=== PATIENT | female | born 1980 | race American Indian/Alaskan Native ===

== ENCOUNTER 2016-12-31 11:49 | Emergency (ER) | payer OTHER ==
[2016-12-31 11:49] VITALS: BMI 43.8
[2016-12-31 12:03] VITALS: TEMP 98.4
[2016-12-31] MEDS ORDERED: TraMADol/Apap 37.5/325 mg Tab PO STA (12:40)
--- NOTE | 2016-12-31 12:57 | ED PDOC ---
Arrival/HPI - General Chief Complaint: Lower Extremity Problem/Injury Time Seen by Provider: 12/31/16 12:17 Historian: Patient - History of Present Illness Narrative History of Present Illness (Text): 12/31/16 12:30 A 36 year old female, whose past medical history includes hypertension, cholelithiasis, and right knee surgery (01/2016), presents to the emergency department complaining of right knee pain and swelling for the past two weeks. Patient reports pain radiated down the right leg to the feet with R calf pain. She states pain started suddenly while walking and denies any injuries, hip pain , fever, or any other complaints at this time. PMD: Dr. Pearson Time/Duration: > week (2 weeks) Symptom Onset: Sudden Symptom Course: Unchanged Quality: Other Activities at Onset: Light Modifying Factors (Text): none Context: Walking Associated Symptoms (Text): pain radiates down the leg to the feet Past Medical History - Provider Review Nursing Documentation Reviewed: Yes - Infectious Disease Hx of Infectious Diseases: None - Tetanus Immunization Tetanus Immunization: Up to Date - Reproductive Menopause: No - Past Medical History Past Medical History: No Previous - Cardiac Hx Hypotension: Yes Hx Pacemaker: No - Pulmonary Hx Respiratory Disorders: No - Neurological Hx Paralysis: No - HEENT Hx HEENT Disorder: No - Renal Hx Renal Disorder: No - Endocrine/Metabolic Hx Endocrine Disorders: No - Hematological/Oncological Hx Blood Transfusions: Yes Hx Blood Transfusion Reaction: No - Integumentary Hx Dermatological Disorder: No - Musculoskeletal/Rheumatological Hx Musculoskeletal Disorders: Yes - Gastrointestinal Hx Gastrointestinal Disorders: Yes - Genitourinary/Gynecological Hx Genitourinary Disorders: No - Psychiatric Hx Emotional Abuse: No Hx Physical Abuse: No Hx Substance Use: No - Past Surgical History Past Surgical History: No Previous - Surgical History Hx Arthroscopy: Yes (R knee) Other/Comment: EXC GANGLION CYST RIGHT FOOT 09/2014. July 2015 - Ovarian cyst removal - Anesthesia Hx Anesthesia Reactions: No Hx Malignant Hyperthermia: No - Suicidal Assessment Feels Threatened In Home Enviroment: No Family/Social History - Physician Review Nursing Documentation Reviewed: Yes Family/Social History: Unknown Family HX Smoking Status: Never Smoked Hx Alcohol Use: No Hx Substance Use: No Hx Substance Use Treatment: No Allergies/Home Meds Allergies/Adverse Reactions: Allergies No Known Allergies Allergy (Verified 07/21/16 11:21) Home Medications: Home Meds Medication Instructions Recorded Confirmed Hydrochlorothiazide [HCTZ] 25 mg PO DAILY 09/27/14 12/31/16 cloNIDine [Catapres] 0.1 mg PO BID 10/05/15 12/31/16 Valsartan [Diovan] 80 mg PO DAILY 07/21/16 12/31/16 amLODIPine [Norvasc] 5 mg PO DAILY 07/21/16 12/31/16 Celecoxib [CeleBREX] 100 mg PO DAILY 10/10/16 12/31/16 Potassium Chloride [Klor-Con M20] 20 meq PO DAILY 10/10/16 12/31/16 Zonisamide [Zonegran] 1 cap PO DAILY 10/18/16 12/31/16 Review of Systems - Physician Review All systems were reviewed & negative as marked: Yes - Review of Systems Constitutional: absent: Other (injuries) Musculoskeletal: Other (right knee pain and swelling radiating down leg; no hip pain) Physical Exam Vital Signs Reviewed: Yes Vital Signs Temp Pulse Resp BP Pulse Ox 12/31/16 13:01 98.4 F 75 18 154/91 H 99 12/31/16 11:58 98.4 F 78 16 154/94 H 100 Temperature: Afebrile Blood Pressure: Hypertensive Pulse: Regular Respiratory Rate: Normal Appearance: Positive for: Well-Appearing, Non-Toxic, Comfortable Pain Distress: None Mental Status: Positive for: Alert and Oriented X 3 - Systems Exam Head: Present: Atraumatic, Normocephalic Conjunctiva: Present: Normal Mouth: Present: Moist Mucous Membranes Neck: Present: Normal Range of Motion Upper Extremity: Present: Normal Inspection Lower Extremity: Present: NORMAL PULSES, Normal ROM, Tenderness (mild tenderness with palpation of the right knee), Swelling (right knee mild swelling ), Neurovascularly Intact. No: Edema, Erythema Neurological: Present: GCS=15, CN II-XII Intact, Speech Normal Skin: Present: Warm, Dry, Normal Color. No: Rashes Psychiatric: Present: Alert, Oriented x 3, Normal Insight, Normal Concentration Medical Decision Making ED Course and Treatment: 12/31/16 12:30 Impression: A 36 year old female with right knee swelling and pain. Differential Diagnosis include but are not limited to: sprain vs fracture vs. dislocation vs. DVT Plan: -- Right Knee X-ray -- Right Lower Extremity Duplex Ultrasound -- POC Urine -- Toradol and Ultracet -- Reassess and disposition Prior Visits: Notes and results from previous visits were reviewed. The patient last presented to the emergency department on 09/20/16 for evaluation of abdominal pain and hematochezia. Progress Notes: 12/31/16 13:27 Ultrasound called to notify the emergency department that patient duplex of the right lower extremity is negative for DVT. 12/31/16 14:04 XR as read by me with no acute findings. Sono with no DVT. Exam with FROM with no erythema or warmth or concern for septic joint. Patient feels better and has an orthopedic with whom she will follow up. Ok for d.c on nsaid and ultracet. - RAD Interpretation Radiology Orders: 12/31/16 12:38 KNEE W PATELLA RIGHT 3 VIEW [RAD] Stat 12/31/16 12:39 DUPLEX LOWER EXTRM VEIN RIGHT [US] Stat - Medication Orders Current Medication Orders: Discontinued Medications Ketorolac Tromethamine (Toradol) 60 mg IM STAT STA Stop: 12/31/16 12:41 Last Admin: 12/31/16 13:08 Dose: 60 mg Tramadol/Acetaminophen (Ultracet 37.5/325 Mg) 2 tab PO STAT STA Stop: 12/31/16 12:41 Last Admin: 12/31/16 13:08 Dose: 2 tab - Scribe Statement The provider has reviewed the documentation as recorded by the Stefan Edmonds Provider Scribe Attestation: All medical record entries made by the Scribe were at my direction and personally dictated by me. I have reviewed the chart and agree that the record accurately reflects my personal performance of the history, physical exam, medical decision making, and the department course for this patient. I have also personally directed, reviewed, and agree with the discharge instructions and disposition. Disposition/Present on Arrival - Present on Arrival Any Indicators Present on Arrival: No History of DVT/PE: No History of Uncontrolled Diabetes: No Urinary Catheter: No History of Decub. Ulcer: No History Surgical Site Infection Following: None - Disposition Have Diagnosis and Disposition been Completed?: Yes Diagnosis: Right knee pain Disposition: HOME/ ROUTINE Disposition Time: 14:10 Patient Plan: Discharge Condition: GOOD Discharge Instructions (ExitCare): Swollen Knee Joint (ED), Knee Pain (ED) Additional Instructions: Take the medications as prescribed. Follow up with orthopedics. Knee immobilizer and cane with ambulation. Return to the emergency department if any new concerning symptoms. Prescriptions: Naproxen [Naprosyn] 500 mg PO BID PRN #20 tab PRN Reason: Pain traMADol/Acetaminophen [Ultracet 325 MG-37.5 MG] 1 tab PO Q8H PRN #20 tab PRN Reason: Pain, Severe (8-10) Referrals: Siddhartha Pearson, [Primary Care Provider] - Follow up with primary
[2016-12-31 13:15] VITALS: BP 154/91; PULSE 75; RESP 18; O2SAT 99
--- NOTE | 2016-12-31 14:31 | RAD ---
PROCEDURE: Right Knee Radiographs. HISTORY: R knee pain and swelling COMPARISON: 10/05/2012 FINDINGS: BONES: Normal. No fracture. JOINTS: There is a small lucency adjacent to the articular surface of the lateral femoral condyle. This could represent an osteochondral defect. This was not present on the previous exam JOINT EFFUSION: None. OTHER FINDINGS: None. IMPRESSION: Probable osteochondral defect articular surface of the lateral femoral condyle.
--- NOTE | 2016-12-31 14:57 | US ---
PROCEDURE: Right lower extremity venous US HISTORY: Leg pain and swelling. Evaluate for DVT. PHYSICIAN(S): Kaleb Montgomery M.D. TECHNIQUE: Duplex sonography and color-flow Doppler with graded compression were used to evaluate the deep venous system of the right lower extremity. FINDINGS: The visualized deep venous system of the right lower extremity is sonographically normal and compressible. Normal waveforms and augmentation are seen. There is no sonographic evidence for deep venous thrombosis in the visualized segments of the right lower extremity. IMPRESSION: 1. No sonographic evidence for deep venous thrombosis in the visualized segments of the right lower extremity.
== END 2016-12-31 15:25 | disposition home or self-care (01) ==
LOC: ED 11:49
DX: M25.561 Pain in right knee (principal); I10 Essential (primary) hypertension; Z98.890 Other specified postprocedural states
CPT/HCPCS: 73562; 93971; 96372; 99283; J1885

== ENCOUNTER 2016-12-31 17:11 | Emergency (ER) | payer OTHER ==
[2016-12-31 17:21] VITALS: BMI 31.5
[2016-12-31 17:24] VITALS: BP 135/85; PULSE 82; RESP 16; TEMP 98; O2SAT 99
--- NOTE | 2016-12-31 19:57 | ED PDOC ---
Arrival/HPI - General Chief Complaint: Medical Clearance Time Seen by Provider: 12/31/16 17:12 Historian: Patient - History of Present Illness Narrative History of Present Illness (Text): 12/31/16 17:15 A 36 year old female who was seen previously today with right knee pain. Please review original charts from earlier. The patient was called back to come to the emergency department because X-ray was read by radiologist. It showed osteochondral defect and MRI was recommended. Patient states there are no change in symptoms from her visit earlier today. Orthopedist: Dr. Dan Past Medical History - Provider Review Nursing Documentation Reviewed: Yes - Infectious Disease Hx of Infectious Diseases: None - Tetanus Immunization Tetanus Immunization: Up to Date - Past Medical History Past Medical History: No Previous - Cardiac Hx Hypotension: Yes Hx Pacemaker: No - Pulmonary Hx Respiratory Disorders: No - Neurological Hx Paralysis: No - HEENT Hx HEENT Disorder: No - Renal Hx Renal Disorder: No - Endocrine/Metabolic Hx Endocrine Disorders: No - Hematological/Oncological Hx Blood Transfusions: Yes Hx Blood Transfusion Reaction: No - Integumentary Hx Dermatological Disorder: No - Musculoskeletal/Rheumatological Hx Musculoskeletal Disorders: Yes - Gastrointestinal Hx Gastrointestinal Disorders: Yes - Genitourinary/Gynecological Hx Genitourinary Disorders: No - Psychiatric Hx Emotional Abuse: No Hx Physical Abuse: No Hx Substance Use: No - Past Surgical History Past Surgical History: No Previous - Surgical History Hx Arthroscopy: Yes (R knee) Other/Comment: EXC GANGLION CYST RIGHT FOOT 09/2014. July 2015 - Ovarian cyst removal - Anesthesia Hx Anesthesia Reactions: No Hx Malignant Hyperthermia: No - Suicidal Assessment Feels Threatened In Home Enviroment: No Family/Social History - Physician Review Nursing Documentation Reviewed: Yes Family/Social History: Unknown Family HX Smoking Status: Never Smoked Hx Alcohol Use: No Hx Substance Use: No Hx Substance Use Treatment: No Allergies/Home Meds Allergies/Adverse Reactions: Allergies No Known Allergies Allergy (Verified 12/31/16 17:22) Home Medications: Home Meds Medication Instructions Recorded Confirmed Hydrochlorothiazide [HCTZ] 25 mg PO DAILY 09/27/14 12/31/16 cloNIDine [Catapres] 0.1 mg PO BID 10/05/15 12/31/16 Valsartan [Diovan] 80 mg PO DAILY 07/21/16 12/31/16 amLODIPine [Norvasc] 5 mg PO DAILY 07/21/16 12/31/16 Celecoxib [CeleBREX] 100 mg PO DAILY 10/10/16 12/31/16 Potassium Chloride [Klor-Con M20] 20 meq PO DAILY 10/10/16 12/31/16 Zonisamide [Zonegran] 1 cap PO DAILY 10/18/16 12/31/16 Review of Systems - Review of Systems Musculoskeletal: Other (right knee pain) Physical Exam Vital Signs Reviewed: Yes Vital Signs Temp Pulse Resp BP Pulse Ox 12/31/16 17:21 98.0 F 82 16 135/85 99 Temperature: Afebrile Blood Pressure: Normal Pulse: Regular Respiratory Rate: Normal Appearance: Positive for: Well-Appearing, Non-Toxic, Comfortable Pain Distress: None Mental Status: Positive for: Alert and Oriented X 3 - Systems Exam Head: Present: Atraumatic, Normocephalic Lower Extremity: Present: Other (knee examine unchanged from previous examination) Skin: Present: Warm, Dry, Normal Color. No: Rashes Psychiatric: Present: Alert, Oriented x 3 Medical Decision Making ED Course and Treatment: 12/31/16 17:15 Impression: A 36 year old female called in for a MRI. Differential Diagnosis include but are not limited to: Osteochondral defect Plan: -- Right knee MRI -- Reassess and disposition Progress Notes: 12/31/16 19:00 MRI Right Lower Extremity Without Intravenous Contrast, Knee : Dictated and Authenticated by: To Gallagher MD COMPARISON: CR - KNEE W PATELLA RIGHT 3 VIEW 12/31/2016 1:17:35 PM FINDINGS: BONES/JOINTS/CARTILAGE: PATELLOFEMORAL COMPARTMENT: A moderate-sized knee joint effusion is present. The position and alignment of the patella on the trochlea groove of the distal femur is normal, with thinning of the hyaline cartilage covering the posterior articular surface of the patella and marginal osteophytosis of the patella present on image 14 of series 5. FEMOROTIBIAL COMPARTMENTS: The femoral condylar hyaline cartilage covering appears thinned overlying the medial and lateral femoral condyles, especially the lateral femoral condyle, with hyaline cartilage loss and subchondral degenerative cystic change/osteochondral defect noted in the posterolateral femoral condyle, best seen on image 20 of series 4 and image 7 of series 6. This lesion measures approximately 14.1 x 7.7 x 6.7 mm in size. A large area of bone marrow edema-like signal is seen in the lateral femoral condyle surrounding the subchondral cystic change. Marginal osteophytic disease is seen in both medial and lateral femoral condyles and the medial and lateral tibial plateau areas, seen on image 15 of series 3. EXTENSOR MECHANISM: The quadriceps tendon appears normal. The patellar tendon appears normal. MEDIAL MENISCUS: The posterior horn of the medial meniscus shows a small probable horizontal meniscal tear extending to the inferior joint surface, seen on image 22 of series 6 and image 5 of series 3. The meniscal fragment is not clearly identified within the joint space except possibly adjacent to the posterior cruciate ligament on image 17 of series 5. The root ligaments of the menisci appear normal. LATERAL MENISCUS: The lateral meniscus is normal. MEDIAL CAPSULE/SUPPORTING STRUCTURES: The medial collateral ligament is normal. LATERAL CAPSULE/SUPPORTING STRUCTURES: The lateral collateral ligament appears normal. The popliteus tendon appears normal. ANTERIOR CRUCIATE LIGAMENT: The anterior cruciate ligament appears normal. POSTERIOR CRUCIATE LIGAMENT: The posterior cruciate ligament shows mild degenerative loss of tissue in the posterior horn, but no definite large tear. MUSCULATURE: Unremarkable. SOFT TISSUES: The subcutaneous prepatellar soft tissues shows a minimal amount of fluid-like signal adjacent and anterior to the patellar tendon. Hoffa's fat pad is normal. OTHER FINDINGS: The popliteal fossa appears normal. IMPRESSION: 1. There is moderately severe osteoarthritis of the knee present affecting all three knee joint compartments, especially the lateral tibiofemoral joint compartment. There is hyaline cartilage loss and an area of subchondral degenerative cystic change/osteochondral defect noted in the posterolateral femoral condyle, best seen on image 20 of series 4 and image 7 of series 6. This lesion measures approximately 14.1 x 7.7 x 6.7 mm in size. A large area of bone marrow edema-like signal is seen in the lateral femoral condyle surrounding this subchondral cystic change. 2. A moderate-sized knee joint effusion is present. 3. There is a probable small horizontal tear of the posterior horn medial meniscus present extending to the inferior joint surface. Case discussed with Dr. Dan. MRI findings reviewed with Dr. Dan, who agrees finding are unlikely acute. He states the patient can follow up with him outpatient. I have discussed the results and plan with the patient, who expresses understanding. Patient in agreement with plan to discharged home. Patient is stable for discharge. Patient was instructed to follow up with Dr. Faccone days or return if symptoms worsen or new concerning symptoms arise. - RAD Interpretation Radiology Orders: 12/31/16 17:13 KNEE W/O CONTRAST RIGHT [MRI] Stat - Scribe Statement The provider has reviewed the documentation as recorded by the Scribe Russ Edmonds Provider Scribe Attestation: All medical record entries made by the Scribe were at my direction and personally dictated by me. I have reviewed the chart and agree that the record accurately reflects my personal performance of the history, physical exam, medical decision making, and the department course for this patient. I have also personally directed, reviewed, and agree with the discharge instructions and disposition. Disposition/Present on Arrival - Present on Arrival Any Indicators Present on Arrival: No History of DVT/PE: No History of Uncontrolled Diabetes: No Urinary Catheter: No History of Decub. Ulcer: No History Surgical Site Infection Following: None - Disposition Have Diagnosis and Disposition been Completed?: Yes Diagnosis: Right knee pain Disposition: HOME/ ROUTINE Disposition Time: 19:55 Patient Plan: Discharge Condition: GOOD Additional Instructions: Follow up with Dr. Dan and take the pain meds as previously prescribed. Return to the emergency department if any new concerning symptoms. Referrals: Siddhartha Pearson DO [Primary Care Provider] - Follow up with primary Cm Dan DO [Doctor [facility]] - Follow up with primary
--- NOTE | 2016-12-31 20:30 | MRI ---
MRI right knee History: Osteochondral defect. Comparison: X-ray dated 12/31/2016 Technique: Multi-echo multiplanar sequences were performed through the right knee without the use of intravenous contrast. Findings: Anterior cruciate ligament is preserved. Posterior cruciate ligament is preserved. Transverse linear oblique signal seen within the posterior horn of the medial meniscus extending to the inferior articular surface consistent with a tear. Blunting of the tip of the body and a portion of the posterior horn of the lateral meniscus suggestive for a tear. Moderate grade strain of the medial collateral ligament. Lateral collateral ligament complex structures are preserved. Quadriceps tendon is preserved. Patellar tendon is preserved. Prominent cartilage thinning and loss overlying the medial and lateral patellar facets as well as the patellar apex suggestive for chondromalacia patella. Prominent focal cartilage defect measuring 9 millimeters extending to the subchondral bone seen at the mid to posterior lateral femoral condyle with adjacent signal abnormality seen within the marrow at that level measuring up to 1.2 centimeters with associated subchondral cyst formation. This is suggestive for a focal osteochondral lesion with prominent overlying cartilage loss and adjacent subchondral cyst formation. Exuberant surrounding reactive edema. Additional cartilage thinning and loss involving the anterior midportion of the medial compartment of the femorotibial joint space with signal change in the adjacent marrow of the mid medial femoral condyle suggestive for some mild early osteochondral change. Moderate suprapatellar joint effusion. Impression: 1. Transverse linear oblique signal seen within the posterior horn of the medial meniscus extending to the inferior articular surface consistent with a tear. 2. Blunting of the tip of the body and a portion of the posterior horn of the lateral meniscus suggestive for a tear. 3. Moderate grade strain of the medial collateral ligament. 4. Prominent cartilage thinning and loss overlying the medial and lateral patellar facets as well as the patellar apex suggestive for chondromalacia patella. Mild subchondral cyst formation seen within the medial patella. 5. Prominent focal cartilage defect measuring 9 millimeters extending to the subchondral bone seen at the mid to posterior lateral femoral condyle with adjacent signal abnormality seen within the marrow at that level measuring up to 1.2 centimeters with associated subchondral cyst formation. This is suggestive for a focal osteochondral lesion with prominent overlying cartilage loss and adjacent subchondral cyst formation. Exuberant surrounding reactive edema. 6. Additional cartilage thinning and loss involving the anterior midportion of the medial compartment of the femorotibial joint space with signal change in the adjacent marrow of the mid medial femoral condyle suggestive for some mild early osteochondral change. 7. Moderate suprapatellar joint effusion.
== END 2016-12-31 19:58 | disposition home or self-care (01) ==
LOC: ED 17:11
DX: M25.561 Pain in right knee (principal)

== ENCOUNTER 2017-04-26 11:09 | Emergency (ER) | payer OTHER ==
[2017-04-26 11:24] VITALS: BMI 34.3
[2017-04-26 11:29] VITALS: TEMP 98.9; O2SAT 100
--- NOTE | 2017-04-26 12:14 | ED PDOC ---
Arrival/HPI - General Chief Complaint: Lower Extremity Problem/Injury Time Seen by Provider: 04/26/17 11:30 Historian: Patient - History of Present Illness Narrative History of Present Illness (Text): 04/26/17 11:34 A 37 year old female, whose past medical history includes arthritis, whose surgical history includes right knee surgery, which was preformed 1 year ago, presents to the emergency department for right sided knee pain and discoloration immediately after having a MRI done this morning. The patient states before her MRI she has had chronic tenderness and sensitivity in her right knee, but immediately after the MRI her pain worsened and she never felt this pain before. She also states she has never seen her knee discolored before. The patient also notes that she has right sided neck pain, which she has had for about 2 months, but has been worsening within the last few days. She states the neck pain radiates down the right side of her body from her fingers to her toes. The patient denies any hematuria, nausea, vomiting, diarrhea, headaches, chest pain, fever, cough, shortness of breath, vision changes, auditory changes, or any other complaints at this time. Time/Duration: Prior to Arrival Symptom Onset: Sudden Symptom Course: Unchanged Activities at Onset: Light Context: Other (MRI imaging center) Past Medical History - Provider Review Nursing Documentation Reviewed: Yes - Infectious Disease Hx of Infectious Diseases: None - Tetanus Immunization Tetanus Immunization: Up to Date - Past Medical History Past Medical History: No Previous - Cardiac Hx Hypertension: Yes - Pulmonary Hx Respiratory Disorders: No - Neurological Hx Paralysis: No - HEENT Hx HEENT Disorder: No - Renal Hx Renal Disorder: No - Endocrine/Metabolic Hx Endocrine Disorders: No - Hematological/Oncological Hx Blood Transfusions: Yes - Integumentary Hx Dermatological Disorder: No - Musculoskeletal/Rheumatological Hx Musculoskeletal Disorders: Yes - Gastrointestinal Hx Gastrointestinal Disorders: Yes - Genitourinary/Gynecological Hx Genitourinary Disorders: No - Psychiatric Hx Substance Use: No - Past Surgical History Past Surgical History: No Previous - Surgical History Hx Arthroscopy: Yes (R knee) Other/Comment: EXC GANGLION CYST RIGHT FOOT 09/2014. July 2015 - Ovarian cyst removal - Anesthesia Hx Anesthesia Reactions: No Hx Malignant Hyperthermia: No - Suicidal Assessment Feels Threatened In Home Enviroment: No Family/Social History - Physician Review Nursing Documentation Reviewed: Yes Family/Social History: No Known Family HX, Unknown Family HX Smoking Status: Never Smoked Hx Alcohol Use: No Hx Substance Use: No Hx Substance Use Treatment: No Allergies/Home Meds Allergies/Adverse Reactions: Allergies No Known Allergies Allergy (Verified 12/31/16 17:22) Home Medications: Home Meds Medication Instructions Recorded Confirmed Hydrochlorothiazide [HCTZ] 25 mg PO DAILY 09/27/14 04/26/17 cloNIDine [Catapres] 0.1 mg PO BID 10/05/15 04/26/17 Valsartan [Diovan] 80 mg PO DAILY 07/21/16 04/26/17 amLODIPine [Norvasc] 5 mg PO DAILY 07/21/16 04/26/17 Celecoxib [CeleBREX] 100 mg PO DAILY 10/10/16 04/26/17 Potassium Chloride [Klor-Con M20] 20 meq PO DAILY 10/10/16 04/26/17 Zonisamide [Zonegran] 1 cap PO DAILY 10/18/16 04/26/17 Review of Systems - Review of Systems Constitutional: absent: Fevers Eyes: absent: Vision Changes ENT: absent: Hearing Changes Respiratory: absent: SOB, Cough Cardiovascular: absent: Chest Pain Gastrointestinal: absent: Diarrhea, Nausea, Vomiting Genitourinary Female: absent: Hematuria Musculoskeletal: Neck Pain (Right side), Other (right side knee pain & discoloration) Skin: Other (dicoloration to the right knee). absent: Rash Neurological: absent: Headache, Focal Weakness Physical Exam - Physical Exam Narrative Physical Exam (Text): 04/26/17 11:50 Head: Atraumatic. Normocephalic. Eyes: PERRL. EOMI. Conjunctivae are not pale. ENT: Mucous membranes are moist and intact. Oropharynx is clear and symmetric. Neck: Paraspinal right sided tenderness. Supple. Full ROM, but has pain with rotation. No JVD. No lymphadenopathy. Cardiovascular: Regular rate. Regular rhythm. No murmurs, rubs, or gallops. Distal pulses are 2+ and symmetric. Pulmonary/Chest: No evidence of respiratory distress. Clear to auscultation bilaterally. No wheezing, rales or rhonchi. Abdominal: Soft and non-distended. There is no tenderness. No rebound, guarding, or rigidity. No organomegaly. Good bowel sounds. Back: No CVA tenderness. Extremities: Right knee tenderness upon palpation to the anterior surface of the knee. No erythema. Mild edema. Old scars. No cyanosis. No clubbing. Full range of motion in all extremities. No calf tenderness. No thigh tenderness or masses. No bleeding or drainage. Skin: Skin is warm and dry. No petechiae. No purpura. Neurological: Patient with median/radial/ulnar motor and sensory function intact. Sensation is intact in upper and lower extremities. Patient with intact motor strength, able to flex and extend at elbow and wrist as well as lower extremity with good strength, there is strong grasp. Psychiatric: Good eye contact. Normal interaction, affect, and behavior. Vital Signs Reviewed: Yes Vital Signs Temp Pulse Resp BP Pulse Ox 04/26/17 12:42 69 18 118/79 100 04/26/17 11:10 98.9 F 74 16 121/84 100 Temperature: Afebrile Blood Pressure: Normal Pulse: Regular Respiratory Rate: Normal Appearance: Positive for: Non-Toxic, Uncomfortable Pain Distress: Moderate Mental Status: Positive for: Alert and Oriented X 3 Medical Decision Making ED Course and Treatment: 04/26/17 11:55 Impression: A 37 year old female with right sided knee tenderness and discoloration Differential Diagnosis included but are not limited to: DVT vs. Knee effusion vs. Knee strain Plan: -- Lower Extremity Ultrasound -- Toradol, Valium -- Reassess and disposition Prior Visits: Notes and results from previous visits were reviewed. The patient was last seen in the emergency department on 12/31/16 for right sided knee pain. The patient was discharged home same day. Progress Notes: Patient presents with acute onset of right sided knee pain after MRI. She has prior history of arthroscopic surgery but denies any recent injury or procedure. Discoloration and pain appears to be localized to anterior portion of knee, tender to palpation but with no obvious warmth or effusion. Able to range and exam not consistent with septic joint or cellulitis as no erythema or fever, and symptoms acute onset. She has intact skin in the distal lower extremity with no pulse deficits, no ankle or calf pain. She also has chronic pain in her neck with right sided numbness for several months. Today's MRI was ordered for these symptoms. She feels neck pain worse after position from MRI. No focal weakness noted on exam. I have stressed need for follow-up of her MRI results with Dr. Rodriguez, although as these symptoms have follow-up and are not acutely changed, valium and pain medication given with improvement in discomfort. 04/26/17 12:35 Preliminary results for lower extremity ultrasound report is negative for DVT. 04/26/17 13:26 On reevaluation the patient reports her neck pain has improved after toradol and valium. Her neurological exam is intact after reevaluation. Patient will follow up MRI results with neurologist and I have advised the patient to follow up with an orthopedic surgeon for knee pain. Stressed close observation, current exam not consistent with cellulitis. ? strain ? small effusion, although she is ambulatory and NV intact with follow- up. Case discussed with her PMD for follow-up. Instructions given to patient. - RAD Interpretation Radiology Orders: 04/26/17 11:47 DUPLEX LOWER EXTRM VEIN RIGHT [US] Stat Evp Managing Director: Radiologist - Medication Orders Current Medication Orders: Discontinued Medications Diazepam (Valium) 2 mg PO ONCE ONE PRN Reason: Protocol Stop: 04/26/17 11:49 Last Admin: 04/26/17 12:45 Dose: 2 mg Ketorolac Tromethamine (Toradol) 30 mg IM ONCE ONE Stop: 04/26/17 11:49 Last Admin: 04/26/17 12:46 Dose: 30 mg - PA / SECOND MATE / Resident Statement MD/DO has reviewed & agrees with the documentation as recorded. - Scribe Statement The provider has reviewed the documentation as recorded by the Scribe Sujata Salas Provider Scribe Attestation: All medical record entries made by the Scribe were at my direction and personally dictated by me. I have reviewed the chart and agree that the record accurately reflects my personal performance of the history, physical exam, medical decision making, and the department course for this patient. I have also personally directed, reviewed, and agree with the discharge instructions and disposition. Disposition/Present on Arrival - Present on Arrival Any Indicators Present on Arrival: No History of DVT/PE: No History of Uncontrolled Diabetes: No Urinary Catheter: No History of Decub. Ulcer: No History Surgical Site Infection Following: None - Disposition Have Diagnosis and Disposition been Completed?: Yes Diagnosis: Knee pain, Neck pain Disposition: HOME/ ROUTINE Disposition Time: 13:00 Patient Plan: Discharge Condition: GOOD Discharge Instructions (ExitCare): Cervical Radiculopathy (ED), Knee Pain (ED) Additional Instructions: Follow-up with your neurologist regarding your recent outpatient MRI. For any fever, any swelling, any redness, any pus or drainage to knee or leg, get rechecked immediately. For any weakness, new numbness, any chest pain or shortness of breath, any new or worsening or persistent symptoms, get rechecked immediately. Continue your current medications. Follow-up with Dr. Rodriguez and your orthopedic physician. Referrals: Frankie Rodriguez MD [Staff Provider] - Follow up with primary Siddhartha Pearson DO [Primary Care Provider] - Follow up with primary Forms: [employer] (Arabic)
[2017-04-26 12:42] VITALS: BP 118/79; PULSE 69; RESP 18
== END 2017-04-26 13:39 | disposition home or self-care (01) ==
LOC: ED 11:09
DX: M25.561 Pain in right knee (principal); M54.2 Cervicalgia; I10 Essential (primary) hypertension
CPT/HCPCS: 93971; 96372; 99284; J1885

== ENCOUNTER 2017-06-12 10:25 | Emergency (ER) | payer OTHER ==
[2017-06-12 10:25] VITALS: BMI 34.3
[2017-06-12 10:40] VITALS: RESP 18; TEMP 98.4; O2SAT 99
--- NOTE | 2017-06-12 11:59 | ED PDOC ---
Arrival/HPI - General Chief Complaint: Back Pain Time Seen by Provider: 06/12/17 11:03 - History of Present Illness Narrative History of Present Illness (Text): 06/12/17 12:01 Patient presents complaining of neck and back pain. States that pain feels like muscle spasms. Worst with movement and palpation. Pt states this feels identical to previous neck back pain quality that have happened in the past. Pt states she had MRIs of the regions in the past which showed herniated disks. Denies fevers/chills, denies IVDA, denies any lower extremity weakness/numbness/ paresthesias. Pt denies saddle anesthesia. Denies any urinary freq or retention. Denies bowel dysfunction/irregularity/incontinence/constipation. Denies upper extr. pain/paresthesias/numbness. Past Medical History - Provider Review Nursing Documentation Reviewed: Yes - Infectious Disease Hx of Infectious Diseases: None - Tetanus Immunization Tetanus Immunization: Up to Date - Past Medical History Past Medical History: No Previous - Cardiac Hx Cardiac Disorders: Yes Hx Hypertension: Yes - Pulmonary Hx Respiratory Disorders: No - Neurological Hx Neurological Disorder: Yes Hx Migraine: Yes Hx Paralysis: No - HEENT Hx HEENT Disorder: No - Renal Hx Renal Disorder: No - Endocrine/Metabolic Hx Endocrine Disorders: No - Hematological/Oncological Hx Blood Disorders: Yes Hx Anemia: Yes Hx Blood Transfusions: No - Integumentary Hx Dermatological Disorder: No - Musculoskeletal/Rheumatological Hx Musculoskeletal Disorders: Yes Hx Back Pain: Yes - Gastrointestinal Hx Gastrointestinal Disorders: Yes - Genitourinary/Gynecological Hx Genitourinary Disorders: No - Psychiatric Hx Psychophysiologic Disorder: No Hx Emotional Abuse: No Hx Physical Abuse: No Hx Substance Use: No - Past Surgical History Past Surgical History: No Previous - Surgical History Hx Arthroscopy: Yes (R knee) Other/Comment: EXC GANGLION CYST RIGHT FOOT 09/2014. July 2015 - Ovarian cyst removal - Anesthesia Hx Anesthesia: Yes Hx Anesthesia Reactions: No Hx Malignant Hyperthermia: No - Suicidal Assessment Feels Threatened In Home Enviroment: No Family/Social History Family/Social History: Unknown Family HX Smoking Status: Never Smoked Hx Alcohol Use: No Hx Substance Use: No Hx Substance Use Treatment: No Allergies/Home Meds Allergies/Adverse Reactions: Allergies No Known Allergies Allergy (Verified 06/12/17 10:35) Home Medications: Home Meds Medication Instructions Recorded Confirmed Hydrochlorothiazide [HCTZ] 25 mg PO DAILY 09/27/14 06/12/17 cloNIDine [Catapres] 0.1 mg PO BID 10/05/15 06/12/17 Valsartan [Diovan] 80 mg PO DAILY 07/21/16 06/12/17 amLODIPine [Norvasc] 5 mg PO DAILY 07/21/16 06/12/17 Celecoxib [CeleBREX] 100 mg PO DAILY 10/10/16 06/12/17 Potassium Chloride [Klor-Con M20] 20 meq PO DAILY 10/10/16 06/12/17 Physical Exam - Physical Exam Narrative Physical Exam (Text): 06/12/17 12:04 - Review of Systems Constitutional: Normal. absent: Fatigue, Weight Change, Fevers Eyes: Normal ENT: denies sore throat, denies tristhmus Respiratory: Normal. absent: SOB, Cough, Sputum Cardiovascular: absent: Chest Pain, Palpitations, Syncope Gastrointestinal: Normal. absent: Abdominal Pain, Diarrhea, Nausea, Vomiting Genitourinary: Normal. absent: Dysuria, Frequency, Hematuria Musculoskeletal: back pain, neck pain Skin: no rashes, no erythema Neurological: absent: Focal Weakness Endocrine: Normal Hemo/Lymphatic: Normal Psychiatric: No suicidal or homicidal ideations Physical exam Patient appears age appropriate in no distress, speaking full sentences without difficulty Increased hypertonicity appreciated in the lower lumbar region, pain quality reproduced with palpation. No midline tenderness. FROM of pt's cervical, thoracic, lumbar, and sacral regions appreciated, active/passive without any difficulty. Lower extremities with full neurological and vascular intact. Steady gait. - Systems Exam Head: Present: Atraumatic, Normocephalic Pupils: Present: PERRL Extroacular Muscles: Present: EOMI Conjunctiva: Present: Normal Mouth: Present: Moist Mucous Membranes Neck: Present: Normal Range of Motion. No: MIDLINE TENDERNESS Respiratory/Chest: Present: Clear to Auscultation, Good Air Exchange. No: Respiratory Distress, Accessory Muscle Use, Tachypneic Cardiovascular: Present: Regular Rate and Rhythm, Normal S1, S2, Peripheal Pulses Present. No: Murmurs Abdomen: Present: Normal Bowel Sounds. No: Tenderness, Distention, Peritoneal Signs, Rebound, Guarding Back: No: Midline Tenderness Upper Extremity: Present: Normal Inspection. No: Cyanosis, Edema Lower Extremity: Present: Normal Inspection. No: Edema Neurological: Present: GCS=15, Speech Normal, cranial nerves II through XII fully intact with no cerebellar abnormality, neurosensory fully intact. No focal neurological deficits. Skin: Present: Warm, Dry, Normal Color. No: Rashes Lymphatic: Present: OX3, NI, NC Psychiatric: Present: Alert, Oriented x 3, Normal Insight, Normal Concentration Vital Signs Reviewed: Yes Vital Signs Temp Pulse Resp BP Pulse Ox 06/12/17 10:38 98.4 F 75 18 132/91 H 99 Temperature: Afebrile Blood Pressure: Normal Pulse: Regular Respiratory Rate: Normal Appearance: Positive for: Well-Appearing Pain Distress: None Mental Status: Positive for: Alert and Oriented X 3 Medical Decision Making ED Course and Treatment: pt received Toradol reported symptomatic relief. Pt states is not driving home. Based on hx and physical, no suspicion for renal involvement, cord impingement or epidural/spinal abscess. stable for dc home. instructed not to drive/operate machinery/drink/do drugs with medication Discussed with Dr. Siddhartha Pearson, agrees with the plan and disposition. Pt verbalized understands to return to the ER right away for new or worsening symptoms or for inability to f/u with PMD or specialist as instructed. Patient verbalized full agreement with and understanding of discharge instructions. States that she agrees with the plan and disposition. Verbalized and repeated discharge instructions and plan. I have given the patient opportunity to ask any additional questions. - Medication Orders Current Medication Orders: Discontinued Medications Ketorolac Tromethamine (Toradol) 30 mg IM STAT STA Stop: 06/12/17 11:08 Last Admin: 06/12/17 11:49 Dose: 30 mg MAR Pain Assessment Document 06/12/17 11:49 [facility] (Rec: 06/12/17 11:49 [facility] [id number]) Pain Reassessment Is this a pain reassessment? No Sleep Is patient sleeping during reassessment? No Presence of Pain Presence of Pain Yes Pain Scale Used Pain Scale Used Numeric Description Intensity of Pain at present 7 IM Administration Charges Document 06/12/17 11:49 [facility] (Rec: 06/12/17 11:49 [facility] [id number]) Charges for Administration # of IM Administrations 1 Disposition/Present on Arrival - Present on Arrival Any Indicators Present on Arrival: No History of DVT/PE: No History of Uncontrolled Diabetes: No Urinary Catheter: No History of Decub. Ulcer: No History Surgical Site Infection Following: None - Disposition Have Diagnosis and Disposition been Completed?: Yes Diagnosis: Neck pain Disposition: HOME/ ROUTINE Disposition Time: 11:59 Patient Plan: Discharge Condition: GOOD Discharge Instructions (ExitCare): Chronic Back Pain (ED) Additional Instructions: PLEASE RETURN TO THE EMERGENCY DEPARTMENT FOR NEW OR WORSENING SYMPTOMS. RETURN RIGHT AWAY IF YOU CANNOT FOLLOW UP WITH YOUR PRIMARY CARE DOCTOR, CLINIC, OR SPECIALIST IN 1-2 DAYS. PLEASE DO NOT TAKE THE MOTRIN WITH CEREBRYX Prescriptions: Ibuprofen [Motrin] 600 mg PO Q8 PRN #12 tab PRN Reason: Pain, Moderate (4-7) Lidocaine 5% [Lidoderm] 1 ea TD DAILY #1 patch Referrals: Siddhartha Pearson DO [Primary Care Provider] - Follow up with primary Forms: [employer] ([place]ese)
[2017-06-12 12:08] VITALS: BP 154/81; PULSE 81
== END 2017-06-12 12:32 | disposition home or self-care (01) ==
LOC: ED 10:25
DX: M54.2 Cervicalgia (principal); I10 Essential (primary) hypertension
CPT/HCPCS: 96372; 99283; J1885

== ENCOUNTER 2018-02-05 19:12 | Inpatient (IN) | payer OTHER ==
--- NOTE | 2018-02-05 19:31 | ED PDOC ---
Arrival/HPI - General Chief Complaint: Chest Pain Time Seen by Provider: 02/05/18 19:18 Historian: Patient - History of Present Illness Narrative History of Present Illness (Text): 02/05/18 19:31 This 37 yo female with pmh fibromyalgia, Lupus, Crohn's, HTN, presents to this ED c/o right side Chest pain x 5 hours. Patient stated she developed chest pain while laying down on her bed. Patient described pain as burning. On the contrary of triage statement, patient c/o right sided CP. Pain is worsen with deep inspiration, and laying down, and improves by sitting. Patient denies sob , abdominal pain, urinary symptoms, or skin rash. Time/Duration: Other (see hpi) Context: Home Past Medical History - Provider Review Nursing Documentation Reviewed: Yes - Infectious Disease Hx of Infectious Diseases: None - Tetanus Immunization Tetanus Immunization: Up to Date - Past Medical History Past Medical History: No Previous - Cardiac Hx Cardiac Disorders: Yes Hx Hypertension: Yes - Pulmonary Hx Respiratory Disorders: No - Neurological Hx Neurological Disorder: Yes Hx Migraine: Yes Hx Paralysis: No - HEENT Hx HEENT Disorder: No - Renal Hx Renal Disorder: No - Endocrine/Metabolic Hx Endocrine Disorders: No - Hematological/Oncological Hx Blood Disorders: Yes Hx Anemia: Yes Hx Blood Transfusions: No - Integumentary Hx Dermatological Disorder: No - Musculoskeletal/Rheumatological Hx Musculoskeletal Disorders: Yes Hx Back Pain: Yes - Gastrointestinal Hx Gastrointestinal Disorders: Yes - Genitourinary/Gynecological Hx Genitourinary Disorders: No - Psychiatric Hx Psychophysiologic Disorder: No Hx Emotional Abuse: No Hx Physical Abuse: No Hx Substance Use: No - Past Surgical History Past Surgical History: No Previous - Surgical History Hx Arthroscopy: Yes (R knee) Other/Comment: EXC GANGLION CYST RIGHT FOOT 09/2014. July 2015 - Ovarian cyst removal - Anesthesia Hx Anesthesia: Yes Hx Anesthesia Reactions: No Hx Malignant Hyperthermia: No - Suicidal Assessment Feels Threatened In Home Enviroment: No Family/Social History - Physician Review Nursing Documentation Reviewed: Yes Family/Social History: Other (noncontributory) Smoking Status: Never Smoked Hx Alcohol Use: No Hx Substance Use: No Hx Substance Use Treatment: No Allergies/Home Meds Allergies/Adverse Reactions: Allergies No Known Allergies Allergy (Verified 02/05/18 19:59) Home Medications: Home Meds Medication Instructions Recorded Confirmed Hydrochlorothiazide [HCTZ] 25 mg PO DAILY 09/27/14 06/12/17 cloNIDine [Catapres] 0.1 mg PO BID 10/05/15 06/12/17 Valsartan [Diovan] 80 mg PO DAILY 07/21/16 06/12/17 amLODIPine [Norvasc] 5 mg PO DAILY 07/21/16 06/12/17 Celecoxib [CeleBREX] 100 mg PO DAILY 10/10/16 06/12/17 Potassium Chloride [Klor-Con M20] 20 meq PO DAILY 10/10/16 06/12/17 Review of Systems - Review of Systems Constitutional: Normal. absent: Fatigue, Weight Change, Fevers, Night Sweats Eyes: Normal ENT: Normal Respiratory: Normal. absent: SOB, Cough Cardiovascular: Chest Pain. absent: Palpitations, Edema, Calf Pain, BECKWITH, Orthopnea, Syncope Gastrointestinal: Normal. absent: Abdominal Pain, Nausea, Vomiting Genitourinary Female: Normal. absent: Dysuria, Frequency Musculoskeletal: Normal. absent: Back Pain Skin: Normal Neurological: Normal. absent: Headache, Dizziness, Focal Weakness, Gait Changes , Speech Changes, Facial Droop, Disequilibrium, Seizure Endocrine: Normal Hemo/Lymphatic: Normal Psychiatric: Normal Physical Exam Vital Signs Temp Pulse Resp BP Pulse Ox 02/05/18 20:51 98.3 F 70 20 124/74 99 Temperature: Afebrile Blood Pressure: Normal Pulse: Regular Respiratory Rate: Normal Appearance: Positive for: Well-Appearing, Non-Toxic, Comfortable Pain Distress: None Mental Status: Positive for: Alert and Oriented X 3 - Systems Exam Head: Present: Atraumatic, Normocephalic Pupils: Present: PERRL Extroacular Muscles: Present: EOMI Conjunctiva: Present: Normal Mouth: Present: Moist Mucous Membranes Neck: Present: Normal Range of Motion Respiratory/Chest: Present: Clear to Auscultation, Good Air Exchange, Tender to Palpation ((+) pain is 100 % reproducible on palpation). No: Respiratory Distress, Accessory Muscle Use, Wheezes, Decreased Breath Sounds, Rales, Retracting, Rhonchi, Tachypneic Cardiovascular: Present: Regular Rate and Rhythm, Normal S1, S2. No: Murmurs Abdomen: No: Tenderness, Distention, Peritoneal Signs, Rebound, Guarding Back: Present: Normal Inspection. No: CVA Tenderness, Midline Tenderness, Paraspinal Tenderness, Pain with Leg Raise Upper Extremity: Present: Normal Inspection, Normal ROM, NORMAL PULSES, Neurovascularly Intact. No: Cyanosis, Edema Lower Extremity: Present: Normal Inspection, NORMAL PULSES, Normal ROM, Neurovascularly Intact, Capillary Refill < 2 s. No: Edema Neurological: Present: GCS=15, CN II-XII Intact, Speech Normal, Motor Func Grossly Intact, Normal Sensory Function, Normal Cerebellar Funct, Gait Normal, Memory Normal Skin: Present: Warm, Dry, Normal Color. No: Rashes Psychiatric: Present: Alert, Oriented x 3, Normal Insight, Normal Concentration Medical Decision Making ED Course and Treatment: 02/05/18 21:[address] Pearson regarding Rhabdomyolysis. He recommended fluids, pain control, and to order cbc, cmp, and repeat CK tomorrow morning. Patient agrees with plan for observation Re-evaluation Time: 21:11 Reassessment Condition: Re-examined, Improving,but remains with symptoms - Lab Interpretations Lab Results: 02/05/18 19:57 02/05/18 19:57 Lab Results 02/05/18 20:21: Urine Color Yellow, Urine Appearance Clear, Urine pH 6.0, Ur Specific [place] <= 1.005, Urine Protein Negative, Urine Glucose (UA) Negative, Urine Ketones Negative, Urine Blood Large H, Urine Nitrate Negative, Urine Bilirubin Negative, Urine Urobilinogen 0.2, Ur Leukocyte Esterase Negative, Urine RBC 20 - 25, Urine WBC 0 - 2, Ur Epithelial Cells 4 - 5, Urine Bacteria Many 02/05/18 19:57: Sodium 143, Potassium 3.4 L, Chloride 103, Carbon Dioxide 27, Anion Gap 16, BUN 14, Creatinine 0.9, Est GFR ( Amer) > 60, Est GFR (Non- Af Amer) > 60, Random Glucose 85, Calcium 9.3, Magnesium 2.1, Total Bilirubin 0.8, AST 50 H D, ALT 40, Alkaline Phosphatase 74, Lactate Dehydrogenase 650, Total Creatine Kinase 1333 H, CK-MB (CK-2) 0.5, CK-MB (CK-2) % Cancelled, Troponin I < 0.01, Total Protein 7.9, Albumin 4.3, Globulin 3.6, Albumin/ Globulin Ratio 1.2 02/05/18 19:57: WBC 4.5 D, RBC 4.05, Hgb 11.1 L, Hct 32.9 L, MCV 81.2 D, MCH 27.4, MCHC 33.7, RDW 13.2, Plt Count 221, MPV 9.8, Gran % 41.9 L, Lymph % (Auto ) 51.7 H, [place] % (Auto) 5.1, Eos % (Auto) 1.1 L, Baso % (Auto) 0.2, Gran # 1.89 , Lymph # (Auto) 2.3, [place] # (Auto) 0.2, Eos # (Auto) 0.1, Baso # (Auto) 0.01 I have reviewed the lab results: Yes Interpretation: Abnormal lab values - RAD Interpretation Narrative RAD Interpretations (Text): 02/05/18 20:16 Chest x-rays: NAD Radiology Orders: 02/05/18 19:41 CHEST PORTABLE [RAD] Stat - EKG Interpretation Interpreted by ED Physician: Yes (NSR @ [address] changes) Type: 12 lead EKG Comparison: No previous EKG avail. - Medication Orders Current Medication Orders: Sodium Chloride (Sodium Chloride 0.9%) 1,000 mls @ 999 mls/hr IV .Q1H1M STA Stop: 02/05/18 21:41 Last Admin: 02/05/18 21:09 Dose: 999 mls/hr eMAR Start Stop Document 02/05/18 21:09 SS (Rec: 02/05/18 21:10 SS [id number]) Intravenous Solution Start Date 02/05/18 Start Time 21:00 End Date 02/05/18 End time 22:00 Total Infusion Time 60 Sodium Chloride (Sodium Chloride 0.9%) 1,000 mls @ 125 mls/hr IV .Q8H ROLDAN Morphine Sulfate (Morphine) 2 mg IVP Q4H PRN PRN Reason: Pain, severe (8-10) Stop: 02/06/18 09:00 Discontinued Medications Famotidine (Pepcid 20mg/50ml Premix) 20 mg in 50 mls @ 100 mls/hr IVPB STAT STA Stop: 02/05/18 20:12 Last Admin: 02/05/18 20:15 Dose: 100 mls/hr eMAR Start Stop Document 02/05/18 20:15 SS (Rec: 02/05/18 20:17 SS [id number]) Intravenous Solution Start Date 02/05/18 Start Time 20:16 End Date 02/05/18 End time 20:46 Total Infusion Time 30 Morphine Sulfate (Morphine) 2 mg IVP STAT STA Stop: 02/05/18 20:42 Last Admin: 02/05/18 21:09 Dose: 2 mg IVP Administration Document 02/05/18 21:09 SS (Rec: 02/05/18 21:09 SS [id number]) Charges for Administration # of IVP Administrations 1 Potassium Chloride (K-Dur 20 Meq Er Tab) 40 meq PO STAT STA Stop: 02/05/18 20:55 Last Admin: 02/05/18 21:09 Dose: 40 meq Disposition/Present on Arrival - Present on Arrival Any Indicators Present on Arrival: No History of DVT/PE: No History of Uncontrolled Diabetes: No Urinary Catheter: No History of Decub. Ulcer: No History Surgical Site Infection Following: None - Disposition Have Diagnosis and Disposition been Completed?: Yes Diagnosis: Rhabdomyolysis Disposition: HOSPITALIZED Disposition Time: 21:12 Patient Plan: Observation Condition: STABLE Referrals: Siddhartha Pearson DO [Primary Care Provider] - Follow up with primary Forms: [employer] (Telugu)
[2018-02-05] MEDS ORDERED: Famotidine 20mg/50ml 20 MG/50 ML BAG IVPB STA (19:43)
[2018-02-05 20:03] LABS: BASO # 0.01 K/mm3 (0.0-2.0); BASO % 0.2 % (0.0-3.0); EOS # 0.1 (0.0-0.7); EOS % 1.1 % (1.5-5.0); GRAN # 1.89 (1.4-6.5); GRAN % 41.9 % (50.0-68.0); HEMOGLOBIN 11.1 g/dL (12.0-16.0); LYMPH # 2.3 (1.2-3.4); LYMPH % 51.7 % (22.0-35.0); MEAN CELL VOLUME 81.2 fl (80.0-105.0); MEAN CORPUSCULAR HEMOGLOBIN 27.4 pg (25.0-35.0); MEAN CORPUSCULAR HGB CONC 33.7 g/dl (31.0-37.0); MEAN PLATELET VOLUME 9.8 fl (7.0-11.0); MONO # 0.2 (0.1-0.6); MONO % 5.1 % (1.0-6.0); RBC 4.05 10^6/uL (3.5-6.1); RED CELL DISTRIBUTION WIDTH 13.2 % (11.5-14.5); WHITE BLOOD COUNT 4.5 10^3/ul (4.5-11.0)
[2018-02-05 20:06] VITALS: BMI 33.0
[2018-02-05 20:16] LABS: ALB/GLOB RATIO 1.2 (1.1-1.8); ALBUMIN 4.3 g/dL (3.0-4.8); ALT/SGPT 40 U/L (7-56); AST/SGOT 50 U/L (14-36); BLOOD UREA NITROGEN 14 mg/dL (7-21); CALCIUM 9.3 mg/dL (8.4-10.5); GFR AFRICAN-AMERICAN > 60; GFR NON-AFRICAN AMERICAN > 60
[2018-02-05 20:25] LABS: TROPONIN I < 0.01 ng/mL
[2018-02-05 20:30] LABS: URINE BILIRUBIN NEGATIVE (NEGATIVE); URINE BLOOD LARGE (NEGATIVE); URINE GLUCOSE (UA) NEGATIVE (NEGATIVE); URINE LEUKOCYTE ESTERASE NEGATIVE Leu/uL (NEGATIVE); URINE PROTEIN NEGATIVE mg/dL (<30 mg/dL); URINE UROBILINOGEN 0.2 E.U./dL (<1 E.U./dL)
[2018-02-05 20:32] LABS: URINE APPEARANCE CLEAR (CLEAR); URINE COLOR YELLOW (YELLOW)
[2018-02-05 20:35] LABS: CK-MB 0.5 ng/mL (0.0-3.6)
[2018-02-05 20:39] LABS: URINE BACTERIA MANY (NEG); URINE RBC 20 - 25 /hpf (0-2); URINE WBC 0 - 2 /hpf (0-6)
[2018-02-05] MEDS ORDERED: Morphine 2 mg/2 mL syringe IVP STA (20:41)
[2018-02-05] MEDS ORDERED: Sodium Chloride 0.9% 1,000 ML IV STA (20:41)
[2018-02-05] MEDS ORDERED: Potassium Chloride 20 mEq ER Tab PO STA (20:54)
[2018-02-05] MEDS ORDERED: Morphine 2 mg/2 mL syringe IVP PRN (21:03)
[2018-02-06] MEDS: Sodium Chloride 0.9% 1,000 ML IV SCH ×3 (00:41→18:34)
[2018-02-06 07:12] LABS: BASO # 0.01 K/mm3 (0.0-2.0); BASO % 0.3 % (0.0-3.0); EOS # 0.1 (0.0-0.7); EOS % 2.4 % (1.5-5.0); GRAN # 1.44 (1.4-6.5); GRAN % 43.6 % (50.0-68.0); HEMOGLOBIN 10.8 g/dL (12.0-16.0); LYMPH # 1.6 (1.2-3.4); LYMPH % 48.2 % (22.0-35.0); MEAN CELL VOLUME 81.7 fl (80.0-105.0); MEAN CORPUSCULAR HEMOGLOBIN 27.1 pg (25.0-35.0); MEAN CORPUSCULAR HGB CONC 33.2 g/dl (31.0-37.0); MEAN PLATELET VOLUME 9.6 fl (7.0-11.0); MONO # 0.2 (0.1-0.6); MONO % 5.5 % (1.0-6.0); RBC 3.98 10^6/uL (3.5-6.1); RED CELL DISTRIBUTION WIDTH 13.4 % (11.5-14.5); WHITE BLOOD COUNT 3.3 10^3/ul (4.5-11.0)
[2018-02-06 07:31] LABS: TROPONIN I < 0.01 ng/mL
[2018-02-06 07:41] LABS: ALB/GLOB RATIO 1.2 (1.1-1.8); ALBUMIN 3.9 g/dL (3.0-4.8); ALT/SGPT 35 U/L (7-56); AST/SGOT 40 U/L (14-36); BLOOD UREA NITROGEN 9 mg/dL (7-21); CALCIUM 8.4 mg/dL (8.4-10.5); GFR AFRICAN-AMERICAN > 60; GFR NON-AFRICAN AMERICAN > 60
[2018-02-06] MEDS ORDERED: Potassium Chloride 20 mEq ER Tab PO ONE (08:01)
--- NOTE | 2018-02-06 08:29 | RAD ---
HISTORY: Chest pain. COMPARISON: 01/02/2016. FINDINGS: LUNGS: No active pulmonary disease. PLEURA: No significant pleural effusion identified, no pneumothorax apparent. CARDIOVASCULAR: Normal. OSSEOUS STRUCTURES: No significant abnormalities. VISUALIZED UPPER ABDOMEN: Normal. OTHER FINDINGS: None. IMPRESSION: No active disease. No significant interval change compared to the prior examination(s). Concordant results with the preliminary interpretation rendered by the emergency department physician procedure.
[2018-02-06 08:36] LABS: CK-MB 0.4 ng/mL (0.0-3.6)
--- NOTE | 2018-02-06 17:28 | CON ---
DATE: 02/06/2018 CARDIOLOGY CONSULTATION HISTORY: The patient is a 37-year-old woman, who presents with focal right-sided chest discomfort. The patient's past medical history includes lupus erythematosus, history of hypertension and she does have a strong family history for CAD. She is on multiple medications for diffuse body aches. Her cardiac risk factors besides her hypertension includes a family history for CAD. SOCIAL HISTORY: The patient does not smoke. She is on no control pills and has normal menses. REVIEW OF SYSTEMS: Fourteen-point review of systems is reviewed in detail. No cardiac symptomatology is noted other than the fact the patient has been lifting weights recently. PHYSICAL EXAMINATION: VITAL SIGNS: Blood pressure is 114/66, heart rates in the 60s. NECK: Negative JVD. LUNGS: Without rales. HEART: Reveals S1, S2. EXTREMITIES: Without edema. EKG is normal sinus rhythm with occasional APCs. No ST changes. LABORATORY DATA: Troponins are negative x2. The CPK is now 1005. Hemoglobin is 10.8. IMPRESSION: 1. Atypical chest pain. 2. Elevated creatine phosphokinase, which maybe related to her weightlifting. 3. No evidence for acute coronary syndrome. 4. Hypertension. 5. Anemia. PLAN: Given these findings, there is no evidence for acute coronary syndrome. We will discontinue telemetry today. Given her risk factors and her initiation of her exercise program, we will arrange for an outpatient stress test next week. Kaleb Stewart MD
--- NOTE | 2018-02-06 19:04 | CARD ---
APPROVED REPORT EKG Measurement Heart [id number] CT 204P38 [id number] <Conclusion> Normal sinus rhythm Low voltage QRS Borderline ECG
--- NOTE | 2018-02-06 19:04 | HP ---
HISTORY OF PRESENT ILLNESS: I saw Emily resting comfortably in bed. She is having some abdominal complaints. She is not feeling that great. She has been working out 5 days in a row. She comes in overall in pain, also chest pain, so she came to the emergency room. She had chest pain while lying down flat in bed. She described it as burning, also hurts with deep inspiration. It improved with sitting. PAST MEDICAL HISTORY: Hypertension, migraines, anemia, back pain, fibromyalgia. PAST SURGICAL HISTORY: She had right knee arthroscopic surgery, excision of a ganglion cyst of the right foot, also ovarian cyst removed. FAMILY HISTORY: Hypertension in the family. SOCIAL HISTORY: Never smoker. No alcohol. No drugs. ALLERGIES: NO KNOWN DRUG ALLERGIES. MEDICATIONS: She is on a lot of medications for hypertension, hydrochlorothiazide, Catapres, Diovan, Norvasc, Celebrex for pain and potassium replacement. REVIEW OF SYSTEMS: No acute vision changes or hearing changes. No sore throat. No shortness of breath or cough. She is having chest pain more on the right side in the right upper quadrant area, but no palpitations. There is right upper quadrant discomfort, but no nausea, vomiting, constipation, diarrhea. No problems urinating. No back pain. No skin issues that she could tell. No rashes. No headaches or dizziness. No weakness. No anxiety or depression. PHYSICAL EXAMINATION: VITAL SIGNS: She has a 98.3 temp, 70 pulse, 20 respiratory rate, 124/74 blood pressure, 99% O2 sat on room air. GENERAL: She is well appearing, nontoxic, comfortable, a little bit distressed over her situation. Alert and oriented x3. HEENT: Head is atraumatic, normocephalic. Extraocular muscles are intact. Pupils equal, reactive to light and accommodation. Throat is moist. NECK: Supple. HEART: Regular rate. Normal S1, S2. LUNGS: Clear to auscultation with decreased breath sounds, but clear to auscultation. Poor inspiration. No wheezes, rhonchi or rales. ABDOMEN: Soft, nontender. Positive sounds. No guarding. No rebound. No CVA tenderness. EXTREMITIES: Have no edema bilaterally. NEUROLOGIC: GCS is 15. Cranial nerves II through XII grossly intact. Normal speech. Alert and oriented x3. SKIN: Warm and dry. No rashes or ulcers or apparent issues. LYMPHATICS: Thyroid midline. No palpable lymphadenopathy. LABORATORY DATA: She had blood tests done in the emergency room, which showed a 143 sodium; potassium was 3.4, this morning is 3.5, we will give her more potassium; BUN 14; creatinine 0.9, and 0.9; GFR is greater than 60; sugar is 90; calcium is 8.4. AST is 40, ALT is 35, alk phos 57. Total creatine kinase was 1333 and now it is down to 1500, still very high. The troponins are less than 0.01, less than 0.01. Total protein 7.3. White count 3.3, hemoglobin 10.8, hematocrit 32.5, platelets of 198. Chest x-ray was clear. IMPRESSION: She is here for rhabdomyolysis. She also has a urinary tract infection and chest pain. She is going to have a consult with Cardiology. Given IV fluids. Checking troponins, nitrofurantoin. I will feed her and when I could get the CPK to a reasonable number, I will discharge her. Emily Salas who is still mildly uncomfortable this morning. Siddhartha Pearson DO MTDGena
[2018-02-07 00:08] VITALS: RESP 18
[2018-02-07] MEDS ORDERED: Pantoprazole 40 mg EC Tab PO SCH (06:00)
[2018-02-07 06:37] VITALS: TEMP 98; O2SAT 99
[2018-02-07 07:31] LABS: HEMOGLOBIN 11.3 g/dL (12.0-16.0); MEAN CELL VOLUME 81.6 fl (80.0-105.0); MEAN PLATELET VOLUME 9.5 fl (7.0-11.0); RBC 4.19 10^6/uL (3.5-6.1); RED CELL DISTRIBUTION WIDTH 13.3 % (11.5-14.5); WHITE BLOOD COUNT 3.7 10^3/ul (4.5-11.0)
[2018-02-07 07:44] LABS: ALB/GLOB RATIO 1.2 (1.1-1.8); ALBUMIN 4.2 g/dL (3.0-4.8); ALT/SGPT 31 U/L (7-56); AST/SGOT 29 U/L (14-36); BLOOD UREA NITROGEN 7 mg/dL (7-21); CALCIUM 8.7 mg/dL (8.4-10.5); GFR AFRICAN-AMERICAN > 60; GFR NON-AFRICAN AMERICAN > 60
[2018-02-07 08:25] LABS: CK-MB 0.3 ng/mL (0.0-3.6)
[2018-02-07 09:36] VITALS: BP 117/81; PULSE 77
--- NOTE | 2018-02-08 02:46 | DS ---
HISTORY OF PRESENT ILLNESS: I saw her this morning, sitting up in bed. She is walking around. She is eating well. She is feeling well. She is trying to get out of the hospital. I am going to discharge her today. She is on Cozaar, Macrobid, Protonix, IV fluids and Tylenol. She is going to drink a lot more water when she goes home. She is feeling back to normal. PHYSICAL EXAMINATION: VITAL SIGNS: She has a 98 temp, 75 pulse, 137/81 blood pressure, 18 respiratory rate, 99% O2 sat on room air. She is going to call me when she gets home for prescription for nitrofurantoin 100 mg twice a day for seven more days for urinary tract infection. HEENT: Head is atraumatic, normocephalic. HEART: Regular rate. LUNGS: Clear to auscultation. ABDOMEN: Soft. EXTREMITIES: No edema. She examines well. LABORATORY DATA: She has a 3.7 white count, 11.3 hemoglobin, 34.2 hematocrit with 195 platelets. 143 sodium, potassium 3.9, BUN 7, creatinine 0.8, GFR is greater than 60, sugar is 107, calcium is 8.7, total bili is 0.5, AST is 29, ALT is 31, alk phos 66. Total creatine kinase is down to 579, it was as high as 1333. She is feeling better. Total protein 7.6. ASSESSMENT AND PLAN: She will be on nitrofurantoin for the urinary tract infection. She will be discharged today. She was seen by Dr. Stewart, the auto specialty services manager. Atypical chest pain, elevated CPK, no evidence of acute coronary syndrome, hypertension. No more weightlifting this week. I will see her in the office this week before she goes back to any exercise. Emily Salas who had rhabdomyolysis. Nicole Pearson DO cc: MD Rosmery (Delete if not dictated.)
== END 2018-02-07 12:49 | disposition home or self-care (01) | DRG 558 ==
LOC: ED 19:12 → ERH 21:08 → 2RSO 02-06 00:13 → OBSVTOIN 02-06 11:34
PROVIDERS: ADMIT Family Medicine; ATTEND Family Medicine
DX: M62.82 Rhabdomyolysis (principal); K50.90 Crohn's disease, unspecified, without complications; N39.0 Urinary tract infection, site not specified; M79.7 Fibromyalgia; L93.0 Discoid lupus erythematosus; I10 Essential (primary) hypertension; D64.9 Anemia, unspecified; Z82.49 Family history of ischemic heart disease and other diseases of the circulatory system; R07.89 Other chest pain